=== PATIENT | female | born 1995 | race Hispanic/Latino ===

== ENCOUNTER 2019-09-07 05:37 | Inpatient (IN) | payer MEDICAID ==
[~2019-09-07 05:37] MED LIST: BICITRA ORAL LIQD 30ML PO NR; FAMOTIDINE 20 MG/2 ML INJ IV NR; METOCLOPRAMIDE 10 MG/2 ML INJ IV NR; OXYTOCIN 20 UNIT/1000ML DRIP 20 UNITS/1,000 ML BAG IV SCH; ceFAZolin/Water 2 GM/20 ML 2 GM/20 ML SYRINGE IV NR
[2019-09-07] MEDS: LACTATED RINGERS 1,000 ML IV SCH ×2 (06:25→06:49)
[2019-09-07 06:38] LABS: Basophils % (Auto) 0.2 % (0.0-1.8); Eosinophils # (Auto) 0.1 K/mm3 (0.0-0.4); Eosinophils % (Auto) 1.1 % (0.0-4.3); Hematocrit 30.2 % (30.3-42.9); Hemoglobin 9.9 gm/dl (10.1-14.3); Lymphocytes # (Auto) 2.5 K/mm3 (1.2-5.4); Lymphocytes % (Auto) 25.1 % (13.4-35.0); Mean Corpuscular HGB Conc 33 % (30-34); Mean Corpuscular Volume 84 fl (79-97); Monocytes # (Auto) 0.7 K/mm3 (0.0-0.8); Monocytes % (Auto) 7.4 % (0.0-7.3); Platelet Count 269 K/mm3 (140-440); Red Blood Count 3.59 M/mm3 (3.65-5.03); Red Cell Distribution Width 14.3 % (13.2-15.2)
[2019-09-07] MEDS ORDERED: LACTATED RINGERS 1,000 ML ONE (06:46)
[2019-09-07] MEDS ORDERED: PROMETHAZINE 25 MG RECT SUPP PR PRN (06:50)
[2019-09-07] MEDS ORDERED: PROMETHAZINE 25 MG TAB PO PRN (06:50)
[2019-09-07] MEDS ORDERED: ONDANSETRON 4 MG/2 ML INJ IV PRN ×2 (06:50→10:58)
[2019-09-07] MEDS ORDERED: NALOXONE 0.4 MG/1 ML INJ IV PRN ×2 (06:50→10:58)
[2019-09-07] MEDS ORDERED: OXYTOCIN 10 UNIT/1 ML INJ ONE ×2 (07:21→08:48)
[2019-09-07] MEDS ORDERED: LIDOCAINE (2%) 20 MG/1 ML VIAL 20 ML MDV INFILTRATI ONE (07:24)
[2019-09-07] MEDS ORDERED: SODIUM CHLORIDE 0.9% IRR 1,500 ML BOTTLE IR ONE (07:56)
[2019-09-07] MEDS ORDERED: WATER FOR IRRIG STERILE 1,500 ML BOTTLE IR ONE (07:56)
[2019-09-07] MEDS ORDERED: KETOROLAC 30 MG/1 ML INJ ONE (08:48)
[2019-09-07] MEDS ORDERED: dexAMETHasone 20 MG/5 ML VIAL ONE (08:48)
[2019-09-07] MEDS ORDERED: PHENYLEPHRINE/NS 1,000 MCG/10 ML SYRINGE (OR USE) IV ONE (08:48)
[2019-09-07] MEDS ORDERED: diphenhydrAMINE 50 MG/ML VIAL ONE (08:48)
[2019-09-07] MEDS ORDERED: DEXMEDETOMIDINE 200 MCG/2 ML VIAL IV ONE (08:48)
[2019-09-07] MEDS ORDERED: ONDANSETRON 4 MG/2 ML INJ ONE (09:00)
[2019-09-07] MEDS: HYDROmorphone 1 MG/1 ML INJ IV PRN ×2 (09:54→10:02)
[2019-09-07] MEDS ORDERED: SIMETHICONE 80 MG CHEW TAB PO PRN (10:58)
[2019-09-07] MEDS ORDERED: OXYTOCIN 20 UNIT/1000ML DRIP 20 UNITS/1,000 ML BAG IV SCH (10:58)
[2019-09-07] MEDS ORDERED: MORPHINE 4 MG/1 ML INJ IV PRN (10:58)
[2019-09-07] MEDS ORDERED: D5W/LACTATED RINGERS 1,000 ML IV SCH (11:30)
[2019-09-07] MEDS ORDERED: IBUPROFEN 800 MG TAB PO PRN (11:30)
[2019-09-07] MEDS ORDERED: LANOLIN/ZINC/DIMETHICONE (LANSINOH) 7 GM TP PRN (11:30)
[2019-09-07] MEDS ORDERED: WITCH HAZEL/ GLYCERIN PAD TP PRN (11:30)
[2019-09-07] MEDS: MORPHINE 2 MG/1 ML INJ IV PRN ×2 (11:40→19:51)
[2019-09-07] MEDS: KETOROLAC 30 MG/1 ML INJ IV SCH ×2 (14:30→22:33)
[2019-09-07] MEDS: ceFAZolin/NS 1 GM/50 ML 1 GM/50 ML BAG IV SCH (15:33)
[2019-09-07 20:00] LABS: Hematocrit 25.3 % (30.3-42.9); Hemoglobin 8.2 gm/dl (10.1-14.3)
[2019-09-08] MEDS: ceFAZolin/NS 1 GM/50 ML 1 GM/50 ML BAG IV SCH (01:12)
[2019-09-08] MEDS: MORPHINE 2 MG/1 ML INJ IV PRN (02:12)
[2019-09-08] MEDS: MAGNESIUM HYDROXIDE (MOM) ORAL LIQD UDC PO SCH ×3 (02:15→17:01)
[2019-09-08] MEDS: KETOROLAC 30 MG/1 ML INJ IV SCH (06:16)
[2019-09-08] MEDS ORDERED: FLU VACC QUAD 2019-20 (3 YR UP)/PF 60 MCG/0.5 ML SYRINGE IM ONE (06:27)
[2019-09-08] MEDS ORDERED: DIPHtheria,PERTUSSIS(ACELL),TETANUS VACCINE/PF 0.5 ML VIAL IM ONE (10:00)
[2019-09-08] MEDS ORDERED: MEASLES, MUMPS & RUBELLA 12,500 UNIT/0.5 ML VACCINE SUB-Q ONE (10:00)
[2019-09-08] MEDS: FERROUS SULFATE 325 MG TAB PO SCH (10:04)
[2019-09-08] MEDS: oxyCODONE /ACETAMINOPHEN 5-325MG TAB PO PRN ×3 (10:10→22:15)
[2019-09-09] MEDS: MAGNESIUM HYDROXIDE (MOM) ORAL LIQD UDC PO SCH ×2 (00:17→05:35)
[2019-09-09] MEDS: oxyCODONE /ACETAMINOPHEN 5-325MG TAB PO PRN ×2 (05:34→10:45)
[2019-09-09] MEDS: FERROUS SULFATE 325 MG TAB PO SCH (10:45)
[2019-09-09 12:21] VITALS: BP 108/68
== END 2019-09-09 12:00 | disposition home or self-care (01) | DRG 765 ==
LOC: APU 05:37 → OB 10:36
PROVIDERS: ADMIT Obstetrics & Gynecology; ATTEND Obstetrics & Gynecology
PROC: 10D00Z1 Extraction of Products of Conception, Low, Open Approach (ICD-10-PCS; principal; 2019-09-07)
DX: O34.211 Maternal care for low transverse scar from previous cesarean delivery (principal); D62 Acute posthemorrhagic anemia; Z3A.39 39 weeks gestation of pregnancy; Z37.0 Single live birth; O99.334 Smoking (tobacco) complicating childbirth; F17.200 Nicotine dependence, unspecified, uncomplicated; O99.62 Diseases of the digestive system complicating childbirth; O99.52 Diseases of the respiratory system complicating childbirth; K21.9 Gastro-esophageal reflux disease without esophagitis; J45.909 Unspecified asthma, uncomplicated; O99.344 Other mental disorders complicating childbirth; F31.9 Bipolar disorder, unspecified; F90.9 Attention-deficit hyperactivity disorder, unspecified type; O99.02 Anemia complicating childbirth
CPT/HCPCS: 36415; 85014; 85018; 85025; 86592; 86850; 86900; 86901; G0378; J0690; J1100; J1170; J1200; J1885; J2270; J2370; J2405; J2590; J2765; J3490; J7120; J7121

== ENCOUNTER 2019-10-02 15:11 | Emergency (ER) | payer MEDICAID ==
[2019-10-02 15:31] VITALS: BP 100/65
== END 2019-10-02 17:46 | disposition left against medical advice (07) ==
LOC: ED 15:11
DX: N93.9 Abnormal uterine and vaginal bleeding, unspecified (principal); Z53.21 Procedure and treatment not carried out due to patient leaving prior to being seen by health care provider